=== PATIENT | male | born 1960 | race Caucasian/White ===

== ENCOUNTER 2016-10-14 10:39 | Emergency (ER) | payer BC ==
--- NOTE | ~2016-10-14 | CT2 ---
[facility] A Service of [facility] & [facility] RADIOLOGY TEXT RESULTS PATIENT: MERARY WELLS LOCATION: [facility] : 60 UNIT #: [id number] AGE: [address]: Alexander Evans DO SEX: M ORDER DR: [id number] [facility] [address] [place], [place] [address] [id number] E MR#: [id number] Acc #: [id number] NAME: MERARY WELLS. : 1960 SEX: M STUDY DATE/TIME: 10/14/2016 12:14 UNIT: [facility] ROOM: STUDY DESCRIPTION: CT Abd and Pelv W Cont Attending Physician: Alexander Evans D.O. Ordering Physician: Alexander Evans D.O. Primary Care Physician: Primary Care Physician No MEDICAL IMAGING REPORT This report is preliminary unless electronic signature is present EXAM CT abdomen and pelvis with IV contrast, 10/14/2016 COMPARISON December 09, 2012 INDICATION 55-year-old male with back and right lower quadrant abdominal pain as well as hip pain for 4 days. History of renal calculi. TECHNIQUE This CT exam was performed with one or more of the following radiation dose reduction techniques: automatic exposure control, adjustment of mA and/or kV according to patient size, and iterative reconstruction. FINDINGS Axial CT and two-view of the abdomen and pelvis was performed after laceration of 100 mL of Isovue-370 intravenously. Coronal and sagittal reformats were constructed. There is a small to moderate-sized fat-containing left inguinal hernia measuring up to 3 cm. Mild degenerative facet disease at L5-S1. Mild degenerative subchondral cystic change of the roof of the right acetabulum. There is disc height loss at L4-L5 and L3-L4. There is grade 1 retrolisthesis of L3 on L4. No acute findings in the imaged lower chest. Mild cardiomegaly. Prior cholecystectomy. The liver, pancreas, spleen, adrenal glands are within normal limits. There is a tiny low-density lesion in the inferior pole of the left kidney measuring 7 mm, which is too small to characterize. There is a separate low-density lesion in the superior pole of the left kidney measuring up to 1.3 cm with indeterminate average STS. [facility] A Service of [facility] & [facility] RADIOLOGY TEXT RESULTS PATIENT: MERARY WELLS LOCATION: [facility] : 60 UNIT #: [id number] AGE: [address]: Alexander Evans DO SEX: M ORDER DR: internal Hounsfield units of 24. Separate low-density lesion inferior pole left kidney measures up to 1 cm with density consistent with a simple cyst. No renal or ureteral calculi. Urinary bladder is collapsed. There are central prostatic calcifications, a nonspecific finding, perhaps related to remote prostatitis. There is no evidence of bowel obstruction. The appendix is normal. No free fluid or pneumoperitoneum. Abdominal aorta is normal in course and caliber, with patency its main branches. No evidence of venous thrombosis. No adenopathy in the abdomen or pelvis. IMPRESSION 1. No acute abnormality in the abdomen, pelvis or imaged lower chest. In particular, no renal or ureteral calculi. 2. Small to moderate-sized fat-containing left inguinal hernia measuring up to 3 cm in maximum dimension. 3. Multilevel degenerative changes of the lower lumbar spine including degenerative grade 1 retrolisthesis of L3 on L4. 4. Mild subchondral cystic change at the roof of the right acetabulum, degenerative in nature. 5. Mild cardiomegaly. 6. Prior cholecystectomy. 7. A 7 mm lesion inferior pole left kidney which is too small to characterize. There is a separate simple cyst in the left kidney measuring up to a centimeter. In the superior pole of left kidney, there is a 1.3 cm indeterminate density hypoattenuating lesion which was present in 2013 but cannot be evaluated for stability, given lack of IV contast on comparison. Consider outpatient CT abdomen with and without IV contrast to exclude significant enhancement. Dictated by... Cory Perkins M.D. THIS IS AN ELECTRONICALLY VERIFIED REPORT Cory Perkins M.D. at 10/16/2016 4:22 PM Shelly TD: 10/15/2016 01:48 JOB #: [id number] MEDICAL IMAGING REPORT Page 1 of 1 COPY
--- NOTE | ~2016-10-14 | MR112 ---
[facility] A Service of [facility] & [facility] RADIOLOGY TEXT RESULTS PATIENT: MERARY WELLS LOCATION: [facility] : 60 UNIT #: [id number] AGE: [address]: Alexander Evans DO SEX: M ORDER DR: [id number] [facility] [address] [place], [place] [address] [id number] E MR#: [id number] #: [id number] NAME: MERARY WELLS. : 1960 SEX: M STUDY DATE/TIME: 10/14/2016 13:16 UNIT: [facility] ROOM: STUDY DESCRIPTION: MR Lumbar WWo Contrast Attending Physician: Alexander Evans D.O. Ordering Physician: Alexander Evans D.O. Primary Care Physician: Primary Care Physician No MRI CENTER REPORT This report is preliminary unless electronic signature is present. EXAM MRI of the lumbar spine with and without contrast HISTORY 55-year-old male low back pain injured 4 days ago getting out of bed, right toe numbness. 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 Lumbar spine surgery many years ago. COMPARISON CT abdomen and pelvis 10/14/2016. FINDINGS Multiplanar, multiecho imaging was performed of the lumbar spine utilizing a high field magnet and dedicated protocol. Examination demonstrates retrolisthesis L3 on L4 of approximately 2-3 mm. This is most likely on the basis of degenerative facet arthropathy. No lumbar marrow edema is identified to suggest a fracture. Normal termination of the conus. At L1-2, the disc space is maintained. No spinal or foraminal stenosis. At L2-3, disc space is maintained. No spinal or foraminal stenosis. At L3-4, moderately advanced degenerative disc disease with mild retrolisthesis and mild bilateral L3-4 facet arthropathy. There is soft tissue edema and marrow edema and fluid within the L3-4 facet joints suggesting an active inflammatory process. This may be a significant contributing factor to the patient's back pain. Patient does demonstrate bilateral L3-4 foraminal stenosis and minimal central canal stenosis. Due to asymmetric disc bulging and facet disease, there is also significant right L3-4 lateral recess stenosis but no discrete focal herniation is identified. This may impinge the exiting L3 nerve root and descending right L4 nerve roots. [facility] A Service of [facility] RADIOLOGY TEXT RESULTS PATIENT: MERARY WELLS LOCATION: [facility] : 60 UNIT #: [id number] AGE: [address]: Alexander Evans DO SEX: M ORDER DR: At L4-5, there is degenerative disc changes with disc space narrowing and mild circumferential hypertrophic change but no focal disc protrusion or herniation. Moderate bilateral L4-5 facet arthropathy. There is some edema particularly within the left L4-5 facet joint which may represent some active inflammation. At L5-S1, degenerative disc changes with a central right paracentral disc protrusion and osteophyte contributing to predominantly right foraminal narrowing. There is also extraforaminal disc protrusion and osteophyte on the right which may impinge the descending right L4 nerve. SI joints unremarkable. Paravertebral soft tissues appear normal. IMPRESSION 1. Multilevel degenerative disc disease as described above in level by level detail. Degenerative disc changes most pronounced L3-4, L4-5. At the L3-4 level, there is retrolisthesis of L3 on L4 most likely due to a combination of degenerative disc disease and facet arthropathy. 2. Effacement of the epidural fat and impingement of the descending and exiting nerve roots just posterior to the L4 vertebral body just below the right L3-4 disc space. This is most likely due to a combination of disc protrusion and osteophyte. This may be a contributing factor to the patient's clinical symptoms. 3. Predominantly right L5-S1 foraminal stenosis due to uncovertebral osteophyte and disc protrusion. 4. L3-4, L4-5 facet arthropathy with some periarticular edema and soft tissue edema particularly about the L3-4 facet joints bilaterally does imply active inflammation and may be a significant contributing factor to the patient's back pain. Please see above for level by level details. Dictated by... Desirae Barahona M.D. THIS IS AN ELECTRONICALLY VERIFIED REPORT Desirae Barahona M.D. at 10/15/2016 10:04 AM DEANGELO/antonietta TD: 10/15/2016 06:37 JOB #: [id number] MRI CENTER REPORT Page 1 of 1 COPY
[~2016-10-14 10:39] MED LIST: CELEBREX PO; CIPRO PO; COLCHICINE PO; FLEXERIL PO; FLOMAX0.4 M1 PO; INDOMETHACIN50 MG PO; NORVASC PO; PERCOCET5/325 PO; PHENERGAN PO; PHENERGAN25 M1 PO; PRILOSEC PO; [UNRECOGNIZED DRUG - REMARK]
[2016-10-14 10:40] LABS: URINE SOURCE CLEAN CATCH
[2016-10-14 10:50] LABS: URINE APPEARANCE CLEAR; URINE BILIRUBIN NEG (NEG); URINE BLOOD NEG (NEG); URINE COLOR YELLOW; URINE GLUCOSE NEG (NEG); URINE KETONE NEG (NEG); URINE LEUKOCYTE ESTERASE TRACE (NEG); URINE NITRATE NEG (NEG); URINE PH 6.5 (5-8); URINE PROTEIN NEG (NEG); URINE SPECIFIC GRAVITY 1.018 (1.003-1.035)
[2016-10-14 10:54] LABS: URBCS1 AUWI 0-2 /[HPF] (0-2); URINE BACTERIA AUWI NEG (NEGATIVE); URINE SQUAMOUS EPITHELIAL CELL NONE SEEN /[HPF]; UWBCS1 AUWI 0-2 (0-5)
[2016-10-14 11:00] LABS: BASOPHIL# 0.1 X10e3 (0-0.3); BASOPHIL% 0.8 % (0-2.5); EOSINOPHIL# 0.2 X10e3 (0-0.7); EOSINOPHIL% 3.3 % (0.0-7.0); HEMATOCRIT 37.3 % (38.0-50.0); HEMOGLOBIN 12.4 gm/dL (13.0-16.0); LYMPHOCYTE# 1.5 X10e3 (1.0-3.5); LYMPHOCYTE% 22.3 % (17.0-45.0); MEAN CELL VOLUME 98.7 FL (83-96); MEAN CORPUSCULAR HEMOGLOBIN 32.7 PG (28-34); MEAN CORPUSCULAR HGB CONC 33.2 g/dL (30-36); MEAN PLATELET VOLUME 8.8 FL (6.5-11.5); MONOCYTE# 0.4 X10e3 (0-1.0); MONOCYTE% 6.4 % (3.0-12.0); NEUTROPHIL# 4.4 X10e3 (1.5-7.1); NEUTROPHIL% 67.2 % (40-75); PLATELET COUNT 192 X10e3 (140-420); RED BLOOD COUNT 3.78 X10e (3.90-5.60); RED CELL DISTRIBUTION WIDTH 13.5 % (11.0-15.5); WHITE BLOOD COUNT 6.5 X10e3 (4.0-10.5)
[2016-10-14 11:01] LABS: CULTURE INDICATED? NO
[2016-10-14 11:03] LABS: DIFF IND NO
[2016-10-14 11:25] LABS: ALBUMIN SERUM 4.4 g/dL (3.5-5.0); BILIRUBIN, DIRECT 0.3 mg/dL (0.0-0.2); BILIRUBIN,INDIRECT 2.9 mg/dL (0.0-0.9); BILIRUBIN,TOTAL 3.2 mg/dL (0.2-2.0); BUN/CREATININE RATIO 20.9; CALCIUM SERUM 9.5 mg/dL (8.4-10.2); CREATININE SERUM 1.1 mg/dL (0.6-1.4); GLOM FILT RATE Estimated 75.2 mL/min (>60); PROTEIN TOTAL SERUM 8.4 g/dL (6.0-8.3)
[2016-10-14 12:35] LABS: AMPHETAMINE NEG (NEG); BARBITURATES NEG (NEG); BENZODIAZEPINES NEG (NEG); COCAINE NEG (NEG); MARIJUANA POS (NEG); OPIATES NEG (NEG); TRICYCLIC ANTIDEPRESSANTS NEG (NEG); U METHADONE NEG (NEG)
== END 2016-10-14 17:20 | disposition home or self-care (01) ==
LOC: CED 10:39
PROVIDERS: Emergency Medicine
DX: M54.5 Low back pain (principal); I10 Essential (primary) hypertension; R94.5 Abnormal results of liver function studies; Z90.49 Acquired absence of other specified parts of digestive tract
CPT/HCPCS: 36415; 72158; 74177; 80048; 80076; 80307; 81003; 83690; 85025; 96374; 99284; A9577; J1885; Q9967